=== PATIENT | female | born 2000 | race Caucasian/White ===

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

== ENCOUNTER 2022-02-07 09:20 | Emergency (ER) | payer MEDICAID ==
[~2022-02-07] VITALS: Ht 157.5 cm; Wt 115.0 kg
[~2022-02-07 09:20] MED LIST changes: -HYD25 PO; +HYDR-4527 PO
[2022-02-07] MEDS ORDERED: LORazepam 1 MG TABLET PO ONE (11:00)
[2022-02-07 12:48] VITALS: BP 110/62
== END 2022-02-07 12:45 | disposition home or self-care (01) ==
LOC: EMS 09:20
DX: F41.9 Anxiety disorder, unspecified (principal); F32.9 Major depressive disorder, single episode, unspecified; F84.0 Autistic disorder; E66.9 Obesity, unspecified; Z88.0 Allergy status to penicillin
CPT/HCPCS: 99283

== ENCOUNTER 2022-03-20 17:28 | Emergency (ER) | payer MEDICAID ==
[~2022-03-20] VITALS: Ht 157.5 cm; Wt 118.0 kg
[2022-03-20 18:20] LABS: BASOPHILS % (AUTO) 0.2 % (0.0-2.0); EOSINOPHILS % (AUTO) 0.3 % (1.0-6.0); HEMATOCRIT 41.8 % (36-46); HEMOGLOBIN 13.2 g/dL (12.0-16.0); LYMPHOCYTES # (AUTO) 1.3 K/uL (1.0-4.8); LYMPHOCYTES % (AUTO) 8.9 % (22.0-44.0); MEAN CORPUSCULAR HEMOGLOBIN 23.7 pg (26.0-34.0); MEAN CORPUSCULAR HGB CONC 31.7 G/dL (31.0-37.0); MEAN CORPUSCULAR VOLUME 75 fL (80-100); MONOCYTES # (AUTO) 0.6 K/uL (0.1-1.0); MONOCYTES % (AUTO) 4.1 % (2.0-9.0); NEUTROPHILS # (AUTO) 12.4 K/uL (1.8-7.7); PLATELET COUNT (AUTO) 353 K/uL (150-450); RED BLOOD CELL COUNT(AUTO) 5.59 MIL/uL (4.00-5.20); RED CELL DISTRIBUTION WIDTH 16.1 % (11.5-14.5)
[2022-03-20 18:22] LABS: NEUTROPHILS % (AUTO) 86.5 % (40.0-70.0)
[2022-03-20 18:31] LABS: ANION GAP 10 mmol/L (8-16); CALCIUM, TOTAL 8.8 mg/dL (8.8-10.5); CARBON DIOXIDE 21 mmol/L (22-29); CHLORIDE 104 mmol/L (98-107); CREATININE 0.73 mg/dL (0.60-1.30); GLUCOSE,RANDOM 128 mg/dL (70-110); POTASSIUM 3.4 mmol/L (3.5-5.1); SODIUM SERUM 135 mmol/L (136-145); UREA NITROGEN, BLOOD 8 mg/dL (7-18)
[2022-03-20 18:37] LABS: GLOMERULAR FILTR. RATE CALC > 60 mL/min (>60)
[2022-03-20 18:41] LABS: ALANINE AMINOTRANSFERASE 41 U/L (12-78); ALBUMIN 3.8 g/dL (3.4-5.0); ALKALINE PHOSPHATASE 79 U/L (46-116); ASPARTATE AMINOTRANSFERASE 17 U/L (15-37); BILIRUBIN,TOTAL 0.6 mg/dL (0.1-1.0); HCG,QUANTITATIVE < 1 mIU/mL (0-6); LIPASE 52 U/L (73-393); TOTAL PROTEIN, SERUM 7.8 g/dL (6.4-8.2)
[2022-03-20 20:31] LABS: COVID AG,FIA SOURCE NASOPHARYNGEAL
[2022-03-20] MEDS: FAMOTIDINE 10 MG/ML 2 ML VIAL IVP ONE (20:38)
[2022-03-20] MEDS: KETOROLAC TROMETHAMINE 30 MG/ML VIAL IVP ONE (20:38)
[2022-03-20] MEDS: ONDANSETRON HCL 4 MG/2 ML VIAL IVP ONE (20:38)
[2022-03-20] MEDS: MAG HYDROX/AL HYDROX/SIMETH 30 ML SUSP UDCUP PO ONE (20:38)
[2022-03-20] MEDS: ACETAMINOPHEN 500 MG TABLET PO ONE (20:38)
[2022-03-20 20:52] LABS: INFLUENZA TYPE A NEGATIVE FOR TYPE A (NEGATIVE); INFLUENZA TYPE B NEGATIVE FOR TYPE B (NEGATIVE)
[2022-03-20 21:35] LABS: RAPID GROUP A STREP NEGATIVE (NEGATIVE)
[2022-03-20] MEDS ORDERED: ONDA-104 PO (22:02)
[2022-03-20 22:06] VITALS: BP 119/67
== END 2022-03-20 22:29 | disposition home or self-care (01) ==
LOC: EMS 17:33
DX: R11.0 Nausea (principal); J02.9 Acute pharyngitis, unspecified; R19.7 Diarrhea, unspecified; F41.9 Anxiety disorder, unspecified; F32.A Depression, unspecified; E66.9 Obesity, unspecified; F84.0 Autistic disorder; R62.50 Unspecified lack of expected normal physiological development in childhood; Z88.0 Allergy status to penicillin; Z20.822 Contact with and (suspected) exposure to COVID-19
CPT/HCPCS: 99285; 96374; 96375; 87426; 80053; 83690; 84702; 85025; 87430; 87804; 36415; 81025; J3490; J1885; J2405

== ENCOUNTER 2023-10-02 08:06 | Emergency (ER) | payer MEDICAID ==
[~2023-10-02] VITALS: Ht 160 cm; Wt 122.7 kg
[~2023-10-02 08:06] MED LIST changes: +ONDA-104 PO
[2023-10-02 08:54] LABS: BASOPHILS % (AUTO) 0.3 % (0.0-2.0); EOSINOPHILS % (AUTO) 0.1 % (1.0-6.0); HEMATOCRIT 41.9 % (36-46); HEMOGLOBIN 13.6 g/dL (12.0-16.0); LYMPHOCYTES # (AUTO) 1.1 K/uL (1.0-4.8); LYMPHOCYTES % (AUTO) 7.7 % (22.0-44.0); MEAN CORPUSCULAR HEMOGLOBIN 24.4 pg (26.0-34.0); MEAN CORPUSCULAR HGB CONC 32.4 G/dL (31.0-37.0); MEAN CORPUSCULAR VOLUME 75 fL (80-100); MONOCYTES # (AUTO) 0.6 K/uL (0.1-1.0); MONOCYTES % (AUTO) 4.2 % (2.0-9.0); NEUTROPHILS # (AUTO) 12.2 K/uL (1.8-7.7); PLATELET COUNT (AUTO) 314 K/uL (150-450); RED BLOOD CELL COUNT(AUTO) 5.56 MIL/uL (4.00-5.20); RED CELL DISTRIBUTION WIDTH 16.7 % (11.5-14.5)
[2023-10-02 08:55] LABS: NEUTROPHILS % (AUTO) 87.7 % (40.0-70.0)
[2023-10-02 09:05] LABS: ANION GAP 16 mmol/L (8-16); CALCIUM, TOTAL 8.5 mg/dL (8.8-10.5); CARBON DIOXIDE 18 mmol/L (22-29); CHLORIDE 105 mmol/L (98-107); CREATININE 0.63 mg/dL (0.60-1.30); GLOMERULAR FILTR. RATE CALC > 60 mL/min (>60); GLUCOSE,RANDOM 141 mg/dL (70-110); POTASSIUM 3.3 mmol/L (3.5-5.1); SODIUM SERUM 139 mmol/L (136-145); UREA NITROGEN, BLOOD 9 mg/dL (7-18)
[2023-10-02 09:14] LABS: APPEARANCE,URINE HAZY (CLEAR); BILIRUBIN,URINE NEGATIVE (NEGATIVE); COLOR,URINE YELLOW (YELLOW); GLUCOSE, URINE (UA) NEGATIVE (NEGATIVE); KETONES,URINE NEGATIVE (NEGATIVE); LEUKOCYTE ESTERASE ,URINE LARGE (NEGATIVE); NITRATE,URINE NEGATIVE (NEGATIVE); OCCULT BLOOD,URINE NEGATIVE (NEGATIVE); PROTEIN,URINE 30-70 mg/dL (NEGATIVE); SPECIFIC GRAVITIY, URINE 1.032 (1.003-1.030); UROBILINOGEN,URINE <=1.0 mg/dL (<=1.0)
[2023-10-02 09:18] LABS: ALANINE AMINOTRANSFERASE 47 U/L (12-78); ALBUMIN 3.7 g/dL (3.4-5.0); ALKALINE PHOSPHATASE 81 U/L (46-116); ASPARTATE AMINOTRANSFERASE 15 U/L (15-37); BILIRUBIN,TOTAL 0.4 mg/dL (0.1-1.0); HCG,QUANTITATIVE < 1 mIU/mL (0-6); LIPASE 17 U/L (16-77); TOTAL PROTEIN, SERUM 8.1 g/dL (6.4-8.2)
[2023-10-02 09:30] LABS: BACTERIA,URINE Moderate /HPF (None Seen); RBC,URINE 0-2 /HPF (0-2); SQUAMOUS EPITHELIAL CELL,UR Many /LPF (None Seen)
[2023-10-02] MEDS: ACETAMINOPHEN 500 MG TABLET PO ONE (09:39)
[2023-10-02] MEDS: DIPHENOXYLATE/ATROP 2.5-0.025 MG TABLET PO ONE (09:39)
[2023-10-02] MEDS: ONDANSETRON HCL 4 MG TABLET PO ONE (09:39)
[2023-10-02] MEDS ORDERED: ACET-66 PO (10:24)
[2023-10-02] MEDS ORDERED: OMEP20 PO (10:24)
[2023-10-02] MEDS ORDERED: SULF-261 PO (10:25)
[2023-10-02 12:07] VITALS: BP 114/76; PULSE 83; RESP 16; TEMP 99.2
== END 2023-10-02 12:10 | disposition home or self-care (01) ==
LOC: EMS 08:11
DX: K52.9 Noninfective gastroenteritis and colitis, unspecified (principal); N39.0 Urinary tract infection, site not specified; F41.9 Anxiety disorder, unspecified; F32.A Depression, unspecified; Z88.0 Allergy status to penicillin
CPT/HCPCS: 99284; 80053; 81001; 83690; 84702; 85025; 36415; 87086; 87186; Q0162

== ENCOUNTER 2024-09-01 22:01 | Emergency (ER) | payer MEDICAID ==
[~2024-09-01] VITALS: Ht 160 cm; Wt 123.0 kg
[~2024-09-01 22:01] MED LIST changes: +ACET-66 PO; +OMEP-148 PO; +SULF-261 PO; +TOPI-258 PO; -TOPI100T37 PO
[2024-09-01 22:16] VITALS: TEMP 99.6
[2024-09-02] MEDS: LORazepam 2 MG TABLET PO ONE (01:12)
[2024-09-02 01:34] VITALS: BP 135/85; PULSE 90; RESP 18; O2SAT 99
== END 2024-09-02 01:39 | disposition home or self-care (01) ==
LOC: EMS 22:06
DX: F41.9 Anxiety disorder, unspecified (principal); F32.A Depression, unspecified; E66.9 Obesity, unspecified; F84.0 Autistic disorder; I10 Essential (primary) hypertension; Z79.899 Other long term (current) drug therapy; Z88.0 Allergy status to penicillin
CPT/HCPCS: 99283